=== PATIENT | female | born 1985 | race Caucasian/White ===

== ENCOUNTER → 2017-04-09 11:50 | Outpatient (REF) | payer OTHER, SELFPAY | LOC: LAB 11:50 | PROVIDERS: Visit Provider Podiatrist | DX: B35.1 Tinea unguium (principal) | CPT/HCPCS: 87220 ==

== ENCOUNTER 2020-03-24 11:00 | Emergency (ER) | payer OTHER, SELFPAY ==
[2020-03-24 11:01] VITALS: BP 142/70; PULSE 125; RESP 30; TEMP 36.6; O2SAT 99; BMI 21.9
--- NOTE | 2020-03-24 11:14 | HMH.EDGENADL ---
ED Disposition Clinical Impression: Hyperventilation, Anxiety state Disposition: Home, Self-Care Condition on Discharge: Good Instructions: DI for Hyperventilation, DI for Anxiety -- Adult Additional Instructions: Continue current medications. Referrals: PCP,No [Non-Staff] - - Critical Care Critical Care Time: No Attestation: On 03/24/20, the high probability of a clinically significant, sudden or life threatening deterioration of the following system(s) required my full and direct attention, intervention and personal management. The time I documented below is in addition to time spent performing reported procedures but includes the following listed in this critical care notation. Medical Decision Making - Blair Inquiry Pt receiving controlled substance: Yes Blair was queried for this patient: Yes Reference #:: [id number] Risks and benefits of using a controlled substance: were not discussed with pt by me Comment: 0 rxs. Vital Signs: 03/24/20 11:01 Temperature 98 F Temperature Source Oral Pulse Rate [Right] 125 H Respiratory Rate 30 H Blood Pressure [Right Arm] 142/70 H Blood Pressure Mean [Right Arm] 94 Blood Pressure Source [Right Arm] Automatic Cuff Blood Pressure Position [Right Arm] Sitting 02 Sat by Pulse Oximetry 99 Oxygen Delivery Method Room Air Orders (Tests/Meds): ED MEDICATIONS Generic Name Dose Route Start Last Admin Trade Name Freq PRN Reason Stop Dose Admin Sodium Chloride 10 ml 03/24/20 11:24 Sodium Chloride 0.9% 10ml Vial IV 04/23/20 11:23 NEEDED PRN to Dilute Lorazepam inj Discontinued Medications Generic Name Dose Route Start Last Admin Trade Name Freq PRN Reason Stop Dose Admin Alprazolam 0.5 mg 03/24/20 11:33 03/24/20 11:37 Alprazolam 0.5mg Tablet PO 03/24/20 11:34 0.5 mg ONCE ONE Administration Lorazepam 1 mg 03/24/20 11:24 Lorazepam 2mg/Ml Vial IV 03/24/20 11:25 ONCE ONE - Reevaluation(s) Time: 12:05 Reevaluation #1: Feeling much better, fingers are still tingly. Hyperventilation has resolved. Appears calm. Denies further needs at this time. Medical Decision Narrative: 11:34 AM: patient states she would prefer oral medication. IV ativan cancelled, po xanax ordered. General Adult HPI - General Stated complaint: panic attack Time Seen by Provider: 03/24/20 11:15 - History of Present Illness HPI narrative: The patient works here as a respiratory therapist. She now presents with a panic attack. Her son is being taken to [facility] for a foreign body in his throat, this sent her into a panic attack. She does have a history of anxiety and is on medications for that, but has not had an episode of severe is this in the past. She is hyperventilating and complains of numbness in her hands and feet and her stomach feels weird. She does not have carpopedal spasm. - Related Data Home Medications Medication Instructions Recorded Confirmed ascorbic acid (vitamin C) 500 mg mg PO 04/09/17 capsule fluconazole 150 mg tablet 150 mg PO PRN 1 Days tab 04/09/17 prenat.vits,dana,cro-acxb-ahebo 1 tab PO QHS 04/09/17 Allergies Allergy/AdvReac Type Severity Reaction Status Date / Time Penicillins Allergy Unknown Unverified 04/09/17 09:41 [facility] History - Hepatitis A Screen Attestation statement:: This patient has been screened for Hepatitis A risk factors. I have reviewed the patient's past medical history: Yes Medical History: Denies:: Anxiety, Chronic Obstructive Pulmonary Disease (COPD), Diabetes Mellitus Type 1, Diabetes Mellitus Type 2, Gastroesophageal Reflux Disease(GERD), Hypertension, Migraine Other Medical History: Denies: Hypothyroidism, Thyroid Disease Other Surgeries: Yes: , Other (Laser surgery on cervix) Amputation: No Fractures: No - Social History Smoking Status: Current every day smoker Tobacco Type: cigarettes # Packs/Day (cigarettes): 1 Alcoho
--- NOTE | 2020-03-24 11:38 | PC.NURSE ---
Pt advises at this time she does not want IV medication because shes going to be with her son. MD made aware and order changed.
[2020-03-24 12:34] VITALS: BP 134/70; PULSE 87; RESP 16; TEMP 36.6; O2SAT 98
== END 2020-03-24 12:36 | disposition home or self-care (01) ==
PROVIDERS: Emergency Provider Emergency Medicine; PCP Pediatrics
DX: F41.1 Generalized anxiety disorder (principal); Z88.0 Allergy status to penicillin; F17.210 Nicotine dependence, cigarettes, uncomplicated
CPT/HCPCS: 99281

== ENCOUNTER → 2021-02-22 08:18 | Outpatient (CLI) | payer OTHER, SELFPAY ==
--- NOTE | 2021-02-22 08:18 | US_ITS ---
PROCEDURE: US TRANSVAGINAL CLINICAL INDICATION: DUB COMPARISON: No exams were available for comparison FINDINGS: UTERUS: 9cm x 4cmx 4cm with a combined endometrial thickness of 2.4mm LEFT OVARY: [id number] with a volume of 27.8ml. A 2.7 cm simple appearing left ovarian cyst RIGHT OVARY: [id number] with a volume of 6.6ml. No cul-de-sac fluid. Blood flow noted in both ovaries IMPRESSION: 2.7 cm simple appearing left ovarian cyst otherwise negative Dictated by: Michael Kelsey MD 02/22/2021 17:58 Michael Kelsey MD in OV 02/22/2021 17:58
== END ==
PROVIDERS: PCP Pediatrics; Visit Provider Obstetrics & Gynecology
DX: N93.8 Other specified abnormal uterine and vaginal bleeding (principal)
CPT/HCPCS: 76830

== ENCOUNTER → 2021-05-11 15:20 | Outpatient (CLI) | payer OTHER, SELFPAY ==
[2021-05-11 16:11] LABS: Basophils % 0.4 % (0.1-2.0); Eosinophils # 0.1 K/mm3 (0.0-0.4); Eosinophils % 0.7 % (0.1-12.0); Hematocrit 40.1 % (37.0-47.0); Hemoglobin 12.7 g/dL (12.2-16.2); Lymphocytes % 24.7 % (10-50); Mean Corpuscular HGB Conc 31.7 g/dL (31.8-35.4); Mean Corpuscular Hemoglobin 31.9 pg (27.0-31.2); Mean Corpuscular Volume 100.7 fl (81-99); Mean Platelet Volume 8.2 fl (7.4-10.4); Monocytes # 0.3 K/mm3 (0.1-1.0); Monocytes % 3.1 % (1.7-9.3); Neutrophils # 5.7 K/mm3 (1.8-7.8); Neutrophils % 71.1 % (37.0-80.0); Platelet Count 269 K/mm3 (142-424); Red Blood Count 3.98 M/mm3 (4.20-5.40); Red Cell Distribution Width 13.2 % (11.5-17.5); White Blood Count 8.1 K/mm3 (4.8-10.8)
[2021-05-11 16:12] LABS: Alanine Aminotransferase 14 U/L (12-78); Albumin Level 4.5 g/dl (3.5-5.0); Alkaline Phosphatase 45 U/L (38-126); Anion Gap 10.2 mEq/L (5-15); Aspartate Amino Transferase 17 U/L (14-36); Bilirubin,Direct 0.2 mg/dl (0.0-0.4); Bilirubin,Indirect 0.4 mg/dL (0.0-0.9); Bilirubin,Total 0.6 mg/dl (0.2-1.3); Bilirubin,Unconjugated 0.4 mg/dL (0.0-1.1); Blood Urea Nitrogen 4 mg/dl (7-17); Calcium 9.1 mg/dl (8.4-10.2); Carbon Dioxide 24 mmol/L (22.0-30.0); Chloride 105 mmol/L (98-107); Chol/HDL Ratio 2.6 (1-3.5); Cholesterol 126 mg/dl (140-200); Estimated Glomerular Filt Rate 141 ml/min (>60); GFR (African American) 171 ML/MIN (>60); Glucose 83 mg/dl (74-100); HDL Cholesterol 48 mg/dl (40-60); Potassium 4.2 mmoL/L (3.5-5.1); Sodium 135 mmol/L (136-145); Total Protein,Serum 6.4 g/dl (6.3-8.2); Triglycerides 51 mg/dl (30-150); VLDL Cholesterol 10 mg/dL (0-40)
[2021-05-11 16:23] LABS: Direct LDL Cholesterol 58.71 mg/dL (100-129)
[2021-05-11 16:29] LABS: Free T4 (Free Thyroxine) 1.04 ng/dl (0.78-2.19)
[2021-05-11 16:43] LABS: Thyroid Stimulating Hormone 1.19 uIU/mL (0.465-4.68)
[2021-05-11 17:01] LABS: Vitamin B12 304 pg/mL (239-931)
== END ==
PROVIDERS: PCP Pediatrics; Visit Provider Physician Assistant
DX: R06.00 Dyspnea, unspecified (principal); R07.89 Other chest pain; R94.31 Abnormal electrocardiogram [ECG] [EKG]
CPT/HCPCS: 80048; 80061; 80076; 82607; 84439; 84443; 85025; 93270

== ENCOUNTER → 2021-05-18 13:39 | Outpatient (CLI) | payer OTHER, SELFPAY ==
--- NOTE | 2021-05-18 13:41 | CA_ITS ---
APPROVED REPORT EXAM: Comprehensive 2D, Doppler, and color-flow Echocardiogram [employer] Physician: Carla Brito CRT Ht: 5 ft 7 in Wt: 151lbs BSA: 1.79 BP: 127/66 mmHg Indications: Abnormal ECG, Chest Pain, Shortness of Breath 2D Dimensions LVOT 1.76 cm (M/F) 1.5-2.5 LA Volume 13.50 mL LA Volume Index 7.50 mL/m2 (M/F) 16-34 M-Mode Dimensions RVDd 2.72 cm (0.9-2.6) LA Diam 3.13 cm (1.9-4.0) LVDd 4.20 cm (3.5-5.7) Ao Diam 3.68 cm (2.0-3.7) LVDs 2.95 cm (3.5-5.7) IVSd 0.84 cm (0.6-1.1) PWd 0.61 cm (0.6-1.1) EF (Teich) 57.30% FS 29.80% EDV (Teich) 78.60 mL TAPSE 2.17 (<1.7) ESV (Teich) 33.60 mL LV Diastology E Decel Time 253.00 (160-240 msec) E/A Ratio 1.45 MED E' 10.40 (< 7 cm/sec) MED A' 7.40 cm/s E'/MED E' Ratio 7.01 (>14) LAT E' 12.00 (<10 cm/sec) LAT A' 6.30 cm/s E/LAT E' Ratio 6.08 (>14) Aortic Valve AI PHT 508.00 ms AO Peak GR. 3.90 mmHg Mitral Valve MV E Max Lam. 73.00 (40-130 cm/s) MV A Velocity 50.00 (40-130 cm/s) E/A Ratio 1.45 MV Decel. Time 253.00 (160-240 ms) MV PHT 74.00 ms Tricuspid Valve TR P. Velocity 201.00 cm/s RAP Estimate 10.00 mmHg RVSP 26.20 mmHg Left Ventricle Left atrium is normal size, left ventricle is normal size, there is no concentric left ventricular hypertrophy, visually estimated ejection fraction 55% with no regional wall motion abnormality, diastolic parameters are within normal range. Right Ventricle Right atrium and right ventricle are normal size and contractility. Aortic Valve Aortic valve is minimally thickened and fibrosed there is no aortic stenosis, there is mild aortic insufficiency. Mitral Valve Mitral valve grossly normal, there is trace mitral regurgitation. Tricuspid Valve Tricuspid grossly normal, there is trace tricuspid regurgitation, tricuspid regurgitation jet velocity is inadequate for calculation of the right ventricular systolic pressure. Pulmonic Valve Pulmonic valve is poorly visualized. Great Vessels Aortic root is normal size. Inferior vena cava is poorly visualized. Pericardium No significant pericardial effusion. Conclusion 1. Normal left ventricular size, preserved left ventricular systolic function, visually estimated ejection fraction 55% with no regional wall motion abnormality, diastolic parameters are within normal range. 2. Mild aortic, trace mitral and tricuspid regurgitation. 3. No significant pericardial effusion. 4. Inferior vena cava is poorly visualized. Electronically signed by : Aravind Hairston MD 05/18/2021 19:50:53
--- NOTE | 2021-05-18 13:47 | CT_ITS ---
FINAL REPORT TECHNIQUE: Then section axial CT images of the chest were obtained with contrast. Three-D reformatted images were also obtained.This study was performed with techniques to keep radiation doses as low as reasonably achievable (ALARA). Individualized dose reduction techniques using automated exposure control or adjustment of mA and/or kV according to the patient''s size were employed. CLINICAL HISTORY: dyspnea, cp FINDINGS: There is no evidence of pulmonary embolism. There is no evidence of thoracic aortic aneurysm or dissection. There is no evidence of mediastinal or hilar mass or adenopathy. There is no evidence of pulmonary mass or suspicious nodule. On the lung window images there is mild bibasilar atelectasis. No suspicious infiltrate or nodule is identified. Limited images of the upper abdomen are unremarkable. IMPRESSION: 1. No evidence of pulmonary embolism. 2. No mass or localized inflammatory process. Reviewed, Interpreted and Dictated by John Shannon III, MD Transcribed by Brigitte Flynn Authenticated by John Shannon III, MD on 05/18/2021 03:06:32 PM [facility]
== END ==
PROVIDERS: PCP Pediatrics; Visit Provider Nurse Practitioner Family
DX: R06.00 Dyspnea, unspecified (principal); R07.89 Other chest pain; R94.31 Abnormal electrocardiogram [ECG] [EKG]
CPT/HCPCS: 71275; 93306; Q9967

== ENCOUNTER → 2021-10-06 13:23 | Outpatient (CLI) | payer OTHER, SELFPAY ==
[2021-10-06 14:16] LABS: Chloride 109 mmol/L (98-107)
[2021-10-06 14:18] LABS: Potassium 4.4 mmoL/L (3.5-5.1)
[2021-10-06 14:19] LABS: Alanine Aminotransferase 14 U/L (12-78); Aspartate Amino Transferase 22 U/L (14-36); Blood Urea Nitrogen 8 mg/dl (7-17); Carbon Dioxide 25 mmol/L (22.0-30.0); Estimated Glomerular Filt Rate 141 ml/min (>60); GFR (African American) 171 ML/MIN (>60)
[2021-10-06 14:20] LABS: Albumin Level 4.6 g/dl (3.5-5.0); Albumin/Globulin Ratio 2.3 (1.1-1.8); Calcium 9.6 mg/dl (8.4-10.2); Chol/HDL Ratio 2.7 (1-3.5); Cholesterol 145 mg/dl (140-200); Glucose 104 mg/dl (74-100); HDL Cholesterol 54 mg/dl (40-60); Total Protein,Serum 6.6 g/dl (6.3-8.2); Triglycerides 47 mg/dl (30-150); VLDL Cholesterol 9 mg/dL (0-40)
[2021-10-06 14:21] LABS: Alkaline Phosphatase 56 U/L (38-126)
[2021-10-06 14:43] LABS: Bilirubin,Total < 0.1 mg/dl (0.2-1.3)
[2021-10-06 14:50] LABS: Thyroid Stimulating Hormone 0.12 uIU/mL (0.465-4.68)
[2021-10-06 14:52] LABS: Basophils # 0.1 K/mm3 (0-0.2); Basophils % 0.4 % (0.1-2.0); Eosinophils # 0.1 K/mm3 (0.0-0.4); Eosinophils % 0.5 % (0.1-12.0); Hematocrit 41.7 % (37.0-47.0); Lymphocytes # 2.1 K/mm3 (0.7-4.5); Lymphocytes % 20.6 % (10-50); Mean Corpuscular HGB Conc 31.1 g/dL (31.8-35.4); Mean Corpuscular Hemoglobin 31.3 pg (27.0-31.2); Mean Corpuscular Volume 100.5 fl (81-99); Mean Platelet Volume 8.8 fl (7.4-10.4); Monocytes # 0.3 K/mm3 (0.1-1.0); Monocytes % 2.7 % (1.7-9.3); Neutrophils # 7.8 K/mm3 (1.8-7.8); Neutrophils % 75.8 % (37.0-80.0); Platelet Count 255 K/mm3 (142-424); Red Blood Count 4.15 M/mm3 (4.20-5.40); Red Cell Distribution Width 13.2 % (11.5-17.5); White Blood Count 10.3 K/mm3 (4.8-10.8)
[2021-10-06 14:58] LABS: Anion Gap 9.4 mEq/L (5-15); Sodium 139 mmol/L (136-145)
[2021-10-10 20:07] LABS: Direct LDL Cholesterol 82 mg/dL (100-129)
== END ==
PROVIDERS: PCP Pediatrics; Visit Provider Pediatrics
DX: Z00.00 Encounter for general adult medical examination without abnormal findings (principal)
CPT/HCPCS: 36415; 80053; 80061; 84443; 85025; 87086

== ENCOUNTER → 2022-08-11 08:41 | Outpatient (CLI) | payer OTHER, SELFPAY ==
--- NOTE | 2022-08-11 08:45 | XR_ITS ---
FINAL REPORT CLINICAL HISTORY: cough FINDINGS: There is no evidence of effusion or other pleural disease. The mediastinum has a normal appearance. The cardiac silhouette is unremarkable. IMPRESSION: Unremarkable chest exam. Reviewed, Interpreted and Dictated by Donita Gorman MD Transcribed by Christiane Balderas Authenticated and [facility]
== END ==
PROVIDERS: PCP Nurse Practitioner Family; Visit Provider Nurse Practitioner
DX: R07.9 Chest pain, unspecified (principal); R05.9 Cough, unspecified
CPT/HCPCS: 71046

== ENCOUNTER → 2022-08-23 12:56 | Outpatient (CLI) | payer OTHER, SELFPAY ==
--- NOTE | 2022-08-23 12:56 | US_ITS ---
FINAL REPORT CLINICAL HISTORY: hyperthyroid, dysphagia, heart palpitations FINDINGS: Thyroid ultrasound: The right lobe of the thyroid measures 5.3 x 1.1 x 1.6 cm in size, slightly enlarged. There is a single nodule noted in the right thyroid gland, 4 x 1.4 x 2.2 mm in size, hypoechoic. The left lobe of the thyroid measures 5.5 x 1.2 x 1.7 cm in size, also slightly enlarged. There is a single nodule in the left thyroid gland measuring 4 x 3 x 3 mm in size, hypoechoic. The isthmus of the thyroid measures 0.25 cm in thickness. IMPRESSION: Two subcentimeter nodules, hypoechoic, in the thyroid gland. These are TI-RADS 1 category nodules. No follow-up is required. Overall size of the thyroid slightly enlarged. Reviewed, Interpreted and Dictated by John Diaz MD Transcribed by Christiane Balderas Authenticated and [facility]
== END ==
PROVIDERS: PCP Nurse Practitioner Family; Visit Provider Nurse Practitioner Family
DX: E05.90 Thyrotoxicosis, unspecified without thyrotoxic crisis or storm (principal); R00.2 Palpitations; R13.10 Dysphagia, unspecified
CPT/HCPCS: 76536

== ENCOUNTER → 2022-12-01 09:15 | Outpatient (CLI) | payer OTHER, SELFPAY ==
[2022-12-01 09:57] LABS: Basophils % 0.2 % (0.1-2.0); Eosinophils # 0.1 K/mm3 (0.0-0.4); Eosinophils % 1.1 % (0.1-12.0); Hematocrit 40.2 % (37.0-47.0); Lymphocytes # 1.9 K/mm3 (0.7-4.5); Lymphocytes % 17.4 % (10-50); Mean Corpuscular HGB Conc 32.4 g/dL (31.8-35.4); Mean Corpuscular Hemoglobin 32.4 pg (27.0-31.2); Mean Corpuscular Volume 99.8 fl (81-99); Mean Platelet Volume 8.8 fl (7.4-10.4); Monocytes # 0.4 K/mm3 (0.1-1.0); Monocytes % 3.2 % (1.7-9.3); Neutrophils # 8.5 K/mm3 (1.8-7.8); Neutrophils % 78.2 % (37.0-80.0); Platelet Count 235 K/mm3 (142-424); Red Blood Count 4.03 M/mm3 (4.20-5.40); Red Cell Distribution Width 12.5 % (11.5-17.5); White Blood Count 10.9 K/mm3 (4.8-10.8)
[2022-12-01 11:46] LABS: Alanine Aminotransferase 16 U/L (12-78); Albumin Level 4.3 g/dl (3.5-5.0); Alkaline Phosphatase 51 U/L (38-126); Anion Gap 13.2 mEq/L (5-15); Aspartate Amino Transferase 19 U/L (14-36); Bilirubin,Total 0.2 mg/dl (0.2-1.3); Blood Urea Nitrogen 10 mg/dl (7-17); Carbon Dioxide 25 mmol/L (22.0-30.0); Chloride 106 mmol/L (98-107); Estimated Glomerular Filt Rate 113 ml/min (>60); GFR (African American) 137 ML/MIN (>60); Globulin 2.1 g/dL (1.3-3.2); Glucose 91 mg/dl (74-100); Potassium 4.2 mmoL/L (3.5-5.1); Sodium 140 mmol/L (136-145); Total Protein,Serum 6.4 g/dl (6.3-8.2)
[2022-12-01 11:47] LABS: Iron 54 ug/dL (37-170)
[2022-12-01 11:56] LABS: Total Iron Binding Capacity 281 ug/dL (265-497)
[2022-12-01 12:03] LABS: 25-OH Vitamin D, Total 42.9 ng/mL (30-100)
[2022-12-01 12:17] LABS: Thyroid Stimulating Hormone 0.75 uIU/mL (0.465-4.68)
[2022-12-01 12:36] LABS: Vitamin B12 284 pg/mL (239-931)
[2022-12-01 12:42] LABS: Ferritin 34.4 ng/ml (6.24-137)
[2022-12-03 13:20] LABS: Thyroid Stimulating Immunoglob <0.10 IU/L (0.00-0.55)
[2022-12-04 11:44] LABS: Thyroid Peroxidase Antibodies 12 IU/mL (0-34); Triiodothyronine (T3) Total 115 ng/dL (71-180)
== END ==
PROVIDERS: PCP Nurse Practitioner Family; Visit Provider Internal Medicine Endocrinology, Diabetes & Metabolism
DX: R53.82 Chronic fatigue, unspecified (principal); E04.2 Nontoxic multinodular goiter; N92.1 Excessive and frequent menstruation with irregular cycle; Z68.23 Body mass index [BMI] 23.0-23.9, adult
CPT/HCPCS: 36415; 80053; 82306; 82607; 82728; 83540; 83550; 84443; 84445; 84480; 85025; 86376

== ENCOUNTER → 2022-12-21 13:50 | Outpatient (CLI) | payer OTHER, SELFPAY ==
--- NOTE | 2022-12-21 13:54 | XR_ITS ---
FINAL REPORT CLINICAL HISTORY: abd pain FINDINGS: TWO-VIEW ABDOMEN There is a nonspecific bowel gas pattern with several fluid levels on the upright view, could represent ileus or enteritis. No abnormal calcification is identified. IMPRESSION: Ileus versus enteritis. Reviewed, Interpreted and Dictated by John Shannon III, MD Transcribed by Adia Whiteside Authenticated and [facility]
[2022-12-25 22:08] LABS: Neisseria gonorrhoeae, NAA Negative (Negative)
== END ==
PROVIDERS: PCP Nurse Practitioner Family; Visit Provider Nurse Practitioner Family
DX: R10.9 Unspecified abdominal pain (principal); R30.0 Dysuria
CPT/HCPCS: 74019; 87086; 87491; 87591

== ENCOUNTER → 2022-12-22 09:31 | Outpatient (CLI) | payer OTHER, SELFPAY ==
[2022-12-22 14:21] LABS: Basophils % 0.2 % (0.1-2.0); Eosinophils % 0.4 % (0.1-12.0); Hematocrit 44.4 % (37.0-47.0); Hemoglobin 14.9 g/dL (12.2-16.2); Lymphocytes # 1.4 K/mm3 (0.7-4.5); Lymphocytes % 13.2 % (10-50); Mean Corpuscular HGB Conc 33.5 g/dL (31.8-35.4); Mean Corpuscular Hemoglobin 34.3 pg (27.0-31.2); Mean Corpuscular Volume 102.4 fl (81-99); Monocytes # 0.4 K/mm3 (0.1-1.0); Neutrophils # 8.5 K/mm3 (1.8-7.8); Neutrophils % 82.3 % (37.0-80.0); Platelet Count 286 K/mm3 (142-424); Red Blood Count 4.34 M/mm3 (4.20-5.40); Red Cell Distribution Width 12.8 % (11.5-17.5); White Blood Count 10.3 K/mm3 (4.8-10.8)
[2022-12-22 15:18] LABS: Alanine Aminotransferase 19 U/L (12-78); Albumin Level 4.6 g/dl (3.5-5.0); Alkaline Phosphatase 52 U/L (38-126); Amylase 62 U/L (30-110); Anion Gap 14.9 mEq/L (5-15); Aspartate Amino Transferase 26 U/L (14-36); Bilirubin,Total 0.4 mg/dl (0.2-1.3); Blood Urea Nitrogen 9 mg/dl (7-17); Calcium 9.3 mg/dl (8.4-10.2); Carbon Dioxide 24 mmol/L (22.0-30.0); Chloride 103 mmol/L (98-107); Estimated Glomerular Filt Rate 113 ml/min (>60); GFR (African American) 137 ML/MIN (>60); Globulin 2.3 g/dL (1.3-3.2); Glucose 84 mg/dl (74-100); Lipase 116 U/L (23-300); Potassium 4.9 mmoL/L (3.5-5.1); Sodium 137 mmol/L (136-145); Total Protein,Serum 6.9 g/dl (6.3-8.2)
[2022-12-22 15:26] LABS: C-Reactive Protein 1.3 mg/L (0-4)
[2022-12-22 15:41] LABS: Erythrocyte Sedimentation Rate 11 mm/hr (0-20)
== END ==
PROVIDERS: PCP Nurse Practitioner Family; Visit Provider Nurse Practitioner Family
DX: R10.9 Unspecified abdominal pain (principal)
CPT/HCPCS: 80053; 82150; 83690; 85025; 85651; 86140

== ENCOUNTER → 2022-12-22 09:54 | Outpatient (CLI) | payer OTHER, SELFPAY ==
--- NOTE | 2022-12-22 09:55 | CT_ITS ---
FINAL REPORT TECHNIQUE: Axial CT images of the abdomen and pelvis were obtained before and after the administration of IV contrast. This study was performed with techniques to keep radiation doses as low as reasonably achievable (ALARA). Individualized dose reduction techniques using automated exposure control or adjustment of mA and/or kV according to the patient''s size were employed. CLINICAL HISTORY: possible ileus on abd xray, bloating and abd pain. FINDINGS: Abdomen: The lung bases are clear. The heart is normal in size. The liver has an unremarkable appearance, without evidence of mass or biliary duct dilatation. . The spleen is unremarkable. No adrenal masses present. The pancreas has an unremarkable appearance. The kidneys enhance normally. The aorta is normal in caliber. There is no free fluid or adenopathy. No mass or abnormal fluid collection is seen. Precontrast images demonstrate no evidence of nephrolithiasis. Pelvis: The appendix is not well visualized. There are multiple fluid-filled small bowel loops in a nonspecific pattern, could represent enteritis. There is a 23 mm right ovarian cyst. There is a moderate amount of retained stool throughout the colon. The urinary bladder is unremarkable. There is no evidence of adenopathy. IMPRESSION: Findings may represent enteritis. Reviewed, Interpreted and Dictated by John Shannon III, MD Transcribed by Adia Whiteside Authenticated and [facility]
== END ==
PROVIDERS: PCP Nurse Practitioner Family; Visit Provider Nurse Practitioner Family
DX: R10.9 Unspecified abdominal pain (principal)
CPT/HCPCS: 74178; Q9967

== ENCOUNTER 2024-02-08 07:26 | Outpatient (CLI) | payer OTHER, SELFPAY ==
--- NOTE | 2024-02-08 | CA_ITS ---
APPROVED REPORT Exam: Exercise Treadmill Technologist: Marge Bailey Ht: 5 ft 7 in Wt: 142 lbs BSA: 1.75 m2 HR: 72 bpm BP: 117/71 mmHg Rhythm: NSR, 1st degree AVB, biatrial enlargement Medical History Cardiac Risk Factors: Smoking, Smoking Stress Test Details HR Resting HR: 72 bpm Max Heart Rate (APMHR): 183.628788 bpm Target HR (85% APMHR): 155.239192 bpm Recovery HR: 136 bpm BP Resting BP: 117.0/71.0 mmHg Recovery BP: 174.0/88.0 mmHg ECG Resting ECG: NSR, 1st degree AVB, biatrial enlargement Stress ECG Conclusion During mingo protocol pt exercise total of 12:15 minutes. No CP noted. Occasional PVC. Allowing for motion artifact the ST segment to exercise is normal. Normal GXT. Myoview images reported separately. Electronically signed by : Alexa Zee MD 02/10/2024 23:24:06
--- NOTE | 2024-02-08 07:27 | NM_ITS ---
APPROVED REPORT Exam: Nuclear Stress Test Indication: family hx, c.p., palpitations Patient Location: Outpatient Stress Tech: Jemma Contreras DC Tech:Chasidy Bonner JOE RT(R)(N) Ht: 5 ft 7 in Wt: 140 lbs Bra Size: 34b HR: 71 bpm BP: 117/71 mmHg BSA: 1.74 m2 TID: 1.10 BMI: 21.9 History: family hx, c.p., palpitations Procedure: Patient exercised on Arnaud protocol 12:15 minutes and sec, resting heart rate 71 bpm, resting blood pressure 117/71 mmHg, with exercise maximum heart rate achived was 166 bpm which is 91 % of the maximum predicted heart rate and blood pressure was 190/66 mmHg. Test was stopped due to fatigue. Patient denied any complaint of chest pain. Patient has average exercise capacity, achieved 12.4 METs of workload on treadmill, the blood pressure response to exercise was normal. Cardiac Stress and Resting SPECT Images: Cardiac Stress and Resting SPECT images were obtained using technetium 99m Myoview 31.7 mCi stress and 10.93 mCi at rest. Raw images demonstrate significant diaphragmatic overlap with the inferior border of the LV wall. This may affect the diagnostic interpretation of the study findings. Resting and stress imaging in supine positions demonstrate medium sized, mild, tapered fixed perfusion defect in the inferior LV wall. This is no longer visualized with prone stress imaging. Findings are suggestive of diaphragmatic attenuation. Gated imaging demonstrates normal global and regional LV systolic function. LVEF is calculated at 52%. Conclusion: Diaphragmatic attenuation is present. No evidence of fixed or reversible perfusion defects. Gated imaging demonstrates normal global and regional LV systolic function. LVEF is calculated at 52%. Electronically signed by : Alexa Zee MD 02/10/2024 23:26:06
--- NOTE | 2024-02-08 07:27 | CA_ITS ---
APPROVED REPORT EXAM: Comprehensive 2D, Doppler, and color-flow Echocardiogram [employer] Accountant: Elida Harris RDCS Ht: 5 ft 7 in Wt: 142lbs BSA: 1.75 BP: 119/74 mmHg Indications: Abn EKG, CP, Ex-smoker, Palpitations 2D Dimensions Left Atrium 2.66 cm F: 2.7 - 3.8 LVOT 1.78 cm (M/F) 1.5-2.5 M-Mode Dimensions RVDd 2.45 cm (0.9-2.6) LVDd 3.99 cm (3.5-5.7) Ao Diam 3.33 cm (2.0-3.7) LVDs 3.12 cm (3.5-5.7) IVSd 0.67 cm (0.6-1.1) PWd 0.77 cm (0.6-1.1) EF (Teich) 44.70% FS 21.80% EDV (Teich) 69.60 mL TAPSE 1.61 (<1.7) ESV (Teich) 38.50 mL LV Diastology E Decel Time 147 (160-240 msec) E/A Ratio 1.5 MED E' 14.3 (>= 7 cm/sec) E'/MED E' Ratio 4.86 (<= 14) LAT E' 13.7 (>= 10 cm/sec) E/LAT E' Ratio 5.07 (<= 14) Aortic Valve AI PHT 334.00 ms Mitral Valve MV E Max Lam. 69.0 (40-130 cm/s) MV A Velocity 46.0 (40-130 cm/s) E/A Ratio 1.52 MV Decel. Time 147 (160-240 ms) Left Ventricle The left ventricle is normal size. The left ventricular systolic function is normal. The left ventricular ejection fraction is within the normal range. There is normal left ventricular wall thickness. There is normal LV segmental wall motion. The left ventricular diastolic function is normal. LVEF is 55%. Right Ventricle The right ventricle is normal size. The right ventricular systolic function is normal. Atria The left atrium size is normal. The right atrium size is normal. There is no Doppler evidence of interatrial shunt. Aortic Valve Aortic valve opens well. There is no aortic valvular stenosis. Mild aortic regurgitation. Mitral Valve The mitral valve is normal in structure. No evidence of mitral valve stenosis. Trace mitral regurgitation. Tricuspid Valve Tricuspid valve is grossly normal in structure and function. Trace tricuspid regurgitation. There is insufficient TR jet to estimate RVSP. Pulmonic Valve The pulmonary valve is normal in structure. Trace pulmonic regurgitation. Great Vessels The aortic root is normal in size. The ascending aorta is not well-visualized. IVC is normal in size and collapses >50% with inspiration. Pericardium There is no pericardial effusion. Other Information Study Quality: Adequate Conclusion Normal biventricular systolic function. Mild AI. Electronically signed by : Alexa Zee MD 02/14/2024 23:43:58
[2024-02-08] MEDS: SODIUM CHLORIDE 0.9% 10ML SYR (RAD ONLY) 10 ML IV ×2 (10:20)
[2024-02-08] MEDS: ISOTOPE MYOVIEW (PER STUDY) 1 DOSE IV (10:20)
== END 2024-02-08 23:59 | disposition home or self-care (01) ==
LOC: RAD 07:27
PROVIDERS: PCP Nurse Practitioner Family; Visit Provider Physician Assistant
DX: R94.31 Abnormal electrocardiogram [ECG] [EKG] (principal); R07.9 Chest pain, unspecified; R53.83 Other fatigue; E04.2 Nontoxic multinodular goiter
CPT/HCPCS: 78452; 93017; 93018; 93306; A9502

== ENCOUNTER 2024-03-28 08:11 | Outpatient (CLI) | payer OTHER, SELFPAY ==
[2024-03-28 08:31] LABS: Basophils % 0.1 % (0.1-2.0); Eosinophils # 0.1 K/mm3 (0.0-0.4); Eosinophils % 0.7 % (0.1-12.0); Hematocrit 35.1 % (37.0-47.0); Hemoglobin 11.7 g/dL (12.2-16.2); Lymphocytes # 1.5 K/mm3 (0.7-4.5); Lymphocytes % 21.9 % (10-50); Mean Corpuscular HGB Conc 33.3 g/dL (31.8-35.4); Mean Corpuscular Hemoglobin 31.8 pg (27.0-31.2); Mean Corpuscular Volume 95.4 fl (81-99); Mean Platelet Volume 9.6 fl (7.4-10.4); Monocytes # 0.3 K/mm3 (0.1-1.0); Monocytes % 4.2 % (1.7-9.3); Platelet Count 270 K/mm3 (142-424); Red Blood Count 3.68 M/mm3 (4.20-5.40); Red Cell Distribution Width 12.2 % (11.5-17.5); White Blood Count 6.9 K/mm3 (4.8-10.8)
[2024-03-28 08:44] LABS: Alanine Aminotransferase 22 U/L (12-78); Albumin Level 4.1 g/dl (3.5-5.0); Alkaline Phosphatase 37 U/L (38-126); Anion Gap 10.4 mEq/L (5-15); Aspartate Amino Transferase 24 U/L (14-36); Bilirubin,Direct 0.1 mg/dl (0.0-0.4); Bilirubin,Indirect 0.1 mg/dL (0.0-0.9); Bilirubin,Total 0.2 mg/dl (0.2-1.3); Bilirubin,Unconjugated 0.1 mg/dL (0.0-1.1); Blood Urea Nitrogen 13 mg/dl (7-17); Calcium 9.1 mg/dl (8.4-10.2); Carbon Dioxide 24 mmol/L (22.0-30.0); Chloride 110 mmol/L (98-107); Cholesterol 164 mg/dl (140-200); Estimated Glomerular Filt Rate 112 ml/min (>60); GFR (African American) 136 ML/MIN (>60); Glucose 104 mg/dl (74-100); HDL Cholesterol 81 mg/dl (40-60); Potassium 4.4 mmoL/L (3.5-5.1); Sodium 140 mmol/L (136-145); Total Protein,Serum 6.1 g/dl (6.3-8.2); Triglycerides 84 mg/dl (30-150); VLDL Cholesterol 17 mg/dL (0-40)
[2024-03-28 08:55] LABS: Direct LDL Cholesterol 72.65 mg/dL (100-129)
[2024-03-28 09:14] LABS: Thyroid Stimulating Hormone 2.08 uIU/mL (0.465-4.68)
[2024-03-28 11:27] LABS: Free T4 (Free Thyroxine) 0.97 ng/dl (0.78-2.19)
== END 2024-03-28 23:59 | disposition home or self-care (01) ==
LOC: LAB 08:12
PROVIDERS: PCP Nurse Practitioner Family; Visit Provider Physician Assistant
DX: R07.9 Chest pain, unspecified (principal); R94.31 Abnormal electrocardiogram [ECG] [EKG]; E04.2 Nontoxic multinodular goiter; R53.83 Other fatigue; E53.8 Deficiency of other specified B group vitamins
CPT/HCPCS: 36415; 80048; 80061; 80076; 84439; 84443; 85025